=== PATIENT | male | born 1980 | race African-American/Black ===

== ENCOUNTER 2021-01-06 05:13 | Day surgery (SDC) | payer OTHER ==
[~2021-01-06] VITALS: Ht 180.3 cm; Wt 95.3 kg
[2021-01-06] MEDS ORDERED: PAXIL20 MG PO (05:50)
[2021-01-06 06:07] LABS: BASOPHILS 0.5 % (0-2); EOSINOPHILS 2.5 % (0-7); HEMATOCRIT 43.8 % (42.0-54.0); HEMOGLOBIN 14.5 g/dL (13.5-17.5); IMMATURE GRANULOCYTES 0.4 % (0-5); LYMPHOCYTE ABS# 4.41 10x3/uL (1.32-3.57); LYMPHOCYTES 42.6 % (15-50); MCH 28.9 pg (26.0-34.0); MCHC 33.1 g/dL (31.0-37.0); MCV 87.4 fL (80.0-100.0); MEAN PLATELET VOLUME 10.9 fL (7.4-10.4); MONOCYTES 9.8 % (2-11); NEUTROPHIL ABS# 4.58 10x3/uL (1.78-5.38); NEUTROPHILS 44.2 % (40-80); PLATELET COUNT 287 10x3/uL (130-400); RBC 5.01 10x6/uL (4.20-6.10); RDW 13.1 % (11.5-14.5); WBC 10.4 10x3/uL (4.8-10.8)
[2021-01-06 06:12] VITALS: BP 145/84; Ht 180.3 cm; Wt 95.3 kg
[2021-01-06 06:23] LABS: CALC OSMOLALITY 277 mosm/kg (275-300); CALCIUM 8.9 mg/dL (8.5-10.1); CARBON DIOXIDE 26.4 mmol/L (21.0-32.0); CHLORIDE - SERUM 104 mmol/L (98-107); CREATININE - SERUM 1.1 mg/dL (0.6-1.3); GLUCOSE 95 mg/dL (74-106); POTASSIUM - SERUM 3.5 mmol/L (3.5-5.1); SODIUM 140 mmol/L (136-145); UREA NITROGEN 11 mg/dL (7-18); eGFR NON AFRICAN AMERICAN 79 mL/min (90-120)
--- NOTE | 2021-01-06 09:59 | NUR ---
0908 DR. HERMANN JACOB, GIVES PT. SURGERY RESULTS, GUARDS X2 AT BEDSIDE. TIME FRAME FOR RELEASE GIVEN.
--- NOTE | 2021-01-06 10:32 | NUR ---
1025 DR. MCCRARY NOTIFIED OF SATURATED TIFFANIEE, STATES TO CHANGE BEFORE RELEASED.
--- NOTE | 2021-02-17 08:20 | OP ---
PATIENT NAME: SIDNEY SENIOR MEDICAL RECORD: [id number] :82 LOCATION:D[facility] ADMISSION DATE: SURGEON: LUNA MCCRARY MD DATE OF OPERATION: 01/06/2021 PREOPERATIVE DIAGNOSIS: Symptomatic neck lipoma. POSTOPERATIVE DIAGNOSIS: Symptomatic neck lipoma. PROCEDURE: Excision of posterior neck lipoma. This measured approximately 5 x 5 x 4 cm. SURGEON: Luna Mccrary MD PHARMACEUTICAL REPRESENTATIVE: None. BLOOD LOSS: Please see the anesthesia sheet. COMPLICATIONS: None. The risks, possible complications, and alternatives of the procedure were explained to the patient. He elects to proceed. The discussion specifically included, but was not limited to, bleeding requiring emergency reoperation, infection, neck injury as well as cranial nerve XI injury. After the procedure, I checked and he had good sensation around the incision. No areas of numbness and good cranial nerve XI function. OPERATIVE COURSE: The patient was conveyed to the operating room electively on 01/06/2021. General anesthesia was induced by the anesthesia staff. The patient was positioned. The area over the lipoma was sterilely prepped. A transverse incision was accomplished. Sharp dissection was carried down through the skin and subcutaneous tissue to the lipomatous tissue. Blunt and sharp dissection was performed in order to remove the lipomatous tissue. Additional surrounding connective tissue was excised in a piecemeal fashion in order to prevent the lipoma from recurring. Meticulous hemostasis was achieved with electrocautery. Gill was added to the wound for additional hemostasis. The subdermis was approximated with interrupted 3-0 Vicryl. The skin was approximated with a running intracuticular 3-0 Vicryl. Benzoin and Steri-Strips were applied. The patient was then extubated and conveyed to post-anesthesia care unit where he was in stable condition. He will be dismissed back to the [place] [facility] today. TRANSINT:[id number] Voice Confirmation ID: [id number] DOCUMENT ID: [id number] LUNA MCCRARY MD at 0820 CC: SHAWN LAU MD [id number] DICTATION DATE: 02/16/21 1245 [employer]ING [employer]ER: 02/16/21 2104 [facility] 01/06/21 [id number] [place] [address]
== END 2021-01-06 11:04 ==
LOC: D.OPS 05:13
PROVIDERS: ATTEND Surgery
DX: D17.0 Benign lipomatous neoplasm of skin and subcutaneous tissue of head, face and neck (principal)